=== PATIENT | male | born 1980 | race Caucasian/White ===

== ENCOUNTER 2017-11-30 19:49 | Emergency (ER) | payer OTHER ==
[2017-11-30] MEDS ORDERED: NS 1,000 ML IV ONE (19:57)
[2017-11-30 20:14] LABS: PLATELET COUNT 184 10^3/uL (150-400)
--- NOTE | 2017-11-30 20:24 | CPEKG ---
Test Reason : OPEN Blood Pressure : / mmHG Vent. Rate : 066 BPM Atrial Rate : 066 BPM P-R Int : 145 ms QRS Dur : 152 ms QT Int : 475 ms P-R-T Axes : 054 061 034 degrees QTc Int : 498 ms Sinus rhythm Right bundle branch block Probable left ventricular hypertrophy Lateral infarct, acute Prolonged QT interval Confirmed by Peter Bragg ([id number]) on 11/30/2017 8:23:30 PM Referred By: Confirmed By:Peter Bragg
[2017-11-30 21:27] VITALS: BP 125/65
--- NOTE | 2017-11-30 21:42 | EDPHY ---
H & P Stated Complaint: near syncope Time Seen by Provider: 11/30/17 19:52 HPI/ROS: Chief complaint: Weakness History of present illness: This is a 37-year-old male brought to the emergency department by EMS for evaluation of weakness. Patient came to [place] earlier this week from [place]. He went out for hike with a friend today. During the hike he became extremely weak. He had to sit down and rest. His weakness became so profound that he could not get back up. [facility] had to go out and bring him to the ambulance who brought him here. He states he has never had this level of weakness before. He woke up in his usual state health. He has been eating and drinking well today. He states in addition to the weakness is head feels strange, he does not have a headache but he does not feel like his head is normal. He denies any associated signs or symptoms including no pain anywhere, no paresthesias, no weakness or paralysis, no bowel or bladder dysfunction, no syncope, no seizure activity. Review of systems: A 10 point review of systems was obtained and other than described above was negative. - Personal History Current Tetanus/Diphtheria Vaccine: Yes Current Tetanus Diphtheria and Acellular Pertussis (TDAP): Yes - Medical/Surgical History Hx Asthma: No Hx Chronic Respiratory Disease: No Hx Diabetes: No Hx Cardiac Disease: No Hx Renal Disease: No Hx Cirrhosis: No Hx Alcoholism: No Hx HIV/AIDS: No Hx Splenectomy or Spleen Trauma: No - Social History Smoking Status: Never smoked - Physical Exam Exam: General Appearance: Alert, nontoxic. Eyes: Pupils equal and round no pallor or injection. EOM intact. ENT, Mouth: Mucous membranes moist. Respiratory: There are no retractions, lungs are clear to auscultation. Cardiovascular: Regular rate and rhythm. Gastrointestinal: Abdomen is soft and non tender, no masses, bowel sounds normal. Neurological: Alert and oriented x4. Cranial nerves 2-12 grossly intact. No pronator drift. Strength and sensation intact and symmetrical. Skin: Warm and dry, no rashes. Musculoskeletal: Neck is supple non tender. Extremities are symmetrical, full range of motion. Psychiatric: Patient is oriented X 3, there is no agitation. Constitutional: Initial Vital Signs Temperature (C) 37.4 C 11/30/17 19:49 Heart Rate 88 11/30/17 19:49 Respiratory Rate 16 11/30/17 19:49 O2 Sat (%) 100 11/30/17 19:49 O2 Delivery Mode Room Air Allergies/Adverse Reactions: No Known Allergies Allergy (Unverified 11/30/17 19:54) Medical Decision Making - Diagnostics Imaging: Discussed imaging studies w/ house calls nurse Radiologist Differential Diagnosis: Patient is discussed with my secondary supervising physician Dr. Peter Bragg. Patient presents with EMS for profound weakness and an abnormal sensation in his head. He is nontoxic. Vital signs are stable. Physical exam is largely unremarkable including a nonfocal neurologic exam. Evaluation including a CT scan was negative, blood studies with mild decreased bicarbonate, mild leukocytosis otherwise unremarkable including a negative D-dimer and troponin. He does have a history of a right bundle branch block, EKG was abnormal. I sent a copy of the EKG to our on-call legal billing specialist, Dr. Austin. He believes this was a non concerning EKG, likely secondary to metabolic changes. This would be consistent with patient's day of hiking and laboratory findings. Orthostatics vital signs were obtained on initial presentation and positive with an increase in pulse rate. He has been IV hydrated with 2 L of normal saline. On re-evaluation he states he feels well, symptoms have resolved. Symptoms were likely secondary to exertion and volume depletion. I am comfortable discharging him home. Home care including rest, hydration and proper meals was discussed. He is to follow up with his primary care doctor when he returns home. Strict return precautions were given. The patient voiced understanding and agreement with plan. - Data Points Laboratory Results: Laboratory Results 11/30/17 19:49 11/30/17 19:49 Medications Given: Discontinued Medications Sodium Chloride (Ns) 1,000 mls @ 0 mls/hr IV EDNOW ONE; Wide Open PRN Reason: Protocol Stop: 11/30/17 19:58 Last Admin: 11/30/17 20:14 Dose: 1,000 mls Point of Care Test Results: Chemistry 11/30/17 11/30/17 20:13 19:59 POC Sodium 140 mEq/L mEq/L (135-145) POC Potassium 3.3 mEq/L mEq/L (3.3-5.0) POC Chloride 101 mEq/L mEq/L (97-110) POC BUN 17 mg/dL mg/dL (7-23) POC Creatinine 1.0 mg/dL mg/dL (0.7-1.3) POC Glucose 132 mg/dL H mg/dL (70-100) POC Troponin I 0.00 ng/mL ng/mL (0.00-0.08) ISTAT H&H 11/30/17 19:59 POC Hgb 15.6 gm/dL gm/dL (13.7-17.5) POC Hct 46 % % (40-51) Departure - Departure Disposition: Home, Routine, Self-Care Clinical Impression: Weakness Condition: Good Instructions: Weakness (ED) Additional Instructions: Please follow-up with a primary care doctor for continued evaluation and care. Drink plenty of fluids to stay hydrated. Eat proper meals. Get plenty of rest this evening. If symptoms worsen or new symptoms develop return to the emergency department for recheck. Referrals: NONE *PRIMARY CARE P,. [Primary Care Provider] - As per Instructions [facility],. [Clinic] - As per Instructions
== END 2017-11-30 21:53 | disposition home or self-care (01) ==
DX: R53.1 Weakness (principal)
CPT/HCPCS: 82435-PO; 82565-PO; 82947-PO; 84132-PO; 84295-PO; 84484-PO; 84520-PO; 85014-PO